=== PATIENT | male | born 1960 | race Caucasian/White ===

== ENCOUNTER 2018-06-30 05:02 | Emergency (ER) | payer BC ==
[~2018-06-30] VITALS: Ht 182.9 cm; Wt 86.2 kg
[2018-06-30 05:08] VITALS: BP_SYST 132
[2018-06-30] MEDS ORDERED: LIP40 PO (05:13)
[2018-06-30] MEDS ORDERED: EMPA25TA PO (05:14)
[2018-06-30] MEDS ORDERED: IBUP-1970 PO (05:14)
[2018-06-30] MEDS ORDERED: GLIP10TA11 PO (05:15)
[2018-06-30] MEDS ORDERED: NAPR-690 PO (05:16)
[2018-06-30] MEDS ORDERED: GABA-529 PO (05:17)
[2018-06-30] MEDS ORDERED: TRAM50TA2 PO (05:17)
[2018-06-30] MEDS ORDERED: PRO40 PO (05:18)
[2018-06-30] MEDS ORDERED: KETO10TA2 PO (05:20)
[2018-06-30] MEDS ORDERED: CLIN300C3 PO (05:21)
[2018-06-30] MEDS ORDERED: CEPH-568 PO (05:21)
[2018-06-30] MEDS ORDERED: MORPHINE 4 MG/ML INJ. SYRINGE IM ONE (05:30)
[2018-06-30] MEDS ORDERED: KETOROLAC TROMETHAMINE 30 MG VIAL IM ONE (05:30)
[2018-06-30 05:41] VITALS: BP_SYST 130
== END 2018-06-30 05:41 | disposition home or self-care (01) ==
LOC: SED 05:02
DX: K08.89 Other specified disorders of teeth and supporting structures (principal); E11.9 Type 2 diabetes mellitus without complications; Z79.899 Other long term (current) drug therapy
CPT/HCPCS: 96372; 99283; J1885; J2270